=== PATIENT | male | born 1995 | race Hispanic/Latino ===

== ENCOUNTER 2018-05-19 13:42 | Emergency (ER) | payer BC, OTHER ==
--- NOTE | 2018-05-19 15:35 | RAD REPORT ---
EXAM DESCRIPTION: CT - CTHCSPWOC - 05/19/2018 3:21 pm CLINICAL HISTORY: Blunt force trauma to the head and, headache and neck pain COMPARISON: None. TECHNIQUE: Axial 5 mm thick images of the head were obtained. Axial 2 mm thick images of the cervic al spine were obtained with sagittal and coronal reconstruction images generated and reviewed. All CT scans are performed using dose optimization technique as appropriate and may include automated exposure control or mA/KV adjustment according to patient size. FINDINGS: No intracranial hemorrhage, mass, edema or acute intracranial finding. No suspicion for acute infarct ion. No extra-axial fluid collections. Mastoid air cells and paranasal sinuses are clear. No globe or orbit abnormality seen. Cervical body height and alignment are normal. No disk space narrowing. No fracture or acute bony abn ormality. No paraspinal mass or hematoma. IMPRESSION: Negative CT head examination for acute or significant finding. Negative CT cervical spine examination for acute or significant finding.
--- NOTE | 2018-05-19 15:39 | EDPHYS ---
Physician Documentation [facility] Name: Oscar Velasco Age: 23 yrs Sex: Male : 1995 Arrival Date: 05/19/2018 Time: 13:45 Bed 12 Private MD: Edvin Martinez S ED Physician Naveen Do HPI: 05/19 15:10 This 23 yrs old Male presents to ER via Ambulatory with complaints of Head rn Injury Without LOC-Adult, Dizziness. 15:10 The patient or guardian reports injury. The complaints affect the right side of the rn back of head. Onset: The symptoms/episode began/occurred just prior to arrival. Severity of symptoms: At their worst the symptoms were mild, in the emergency department the symptoms have improved. The patient has not experienced similar symptoms in the past. Reports at work, no head protection, someone cut the straps of cargo, hit in back of head with several pieces of lumbar, no LOC, felt dazed and dizzy, now improved, reports mild headache and neck pain, no focal neurological complaints. . Historical: - Home Meds: 13:57 pro graft [Active]; hj - PMHx: 13:57 liver failure; hj - PSHx: 13:57 liver transplant; hj - Immunization history:: Adult Immunizations up to date. - Social history:: Smoking status: Patient/guardian denies using tobacco, Patient/guardian denies using alcohol. - Immunization history: Last tetanus immunization: unknown. - Ebola Screening: : Patient negative for fever greater than or equal to 101.5 degrees Fahrenheit, and additional compatible Ebola Virus Disease symptoms Patient denies exposure to infectious person Patient denies travel to an Ebola-affected area in the 21 days before illness onset. - Family history:: not pertinent. - Hospitalizations: : No recent hospitalization is reported. ROS: 15:10 Constitutional: Negative for fever, chills, and weight loss, Eyes: Negative for injury, rn pain, redness, and discharge, Neck: + neck pain Cardiovascular: Negative for chest pain, palpitations, and edema, Respiratory: Negative for shortness of breath, cough, wheezing, and pleuritic chest pain, Abdomen/GI: Negative for abdominal pain, nausea, vomiting, diarrhea, and constipation, Back: Negative for injury and pain, MS/Extremity: Negative for injury and deformity, Skin: Negative for injury, rash, and discoloration, Neuro: + headache and head injury Exam: 15:10 Constitutional: This is a well developed, well nourished patient who is awake, alert, rn and in no acute distress. Head/Face: Normocephalic, atraumatic. Eyes: Pupils equal round and reactive to light, extra-ocular motions intact. Lids and lashes normal. Conjunctiva and sclera are non-icteric and not injected. Cornea within normal limits. Periorbital areas with no swelling, redness, or edema. Neck: No midline cervical tenderness, in ccollar Back: No spinal tenderness. Skin: Warm, dry with normal turgor. Normal color with no rashes, no lesions, and no evidence of cellulitis. MS/ Extremity: Pulses equal, no cyanosis. Neurovascular intact. Full, normal range of motion. Equal circumference. Neuro: Awake and alert, GCS 15, oriented to person, place, time, and situation. Cranial nerves II-XII grossly intact. Motor strength 5/5 in all extremities. Sensory grossly intact. Cerebellar exam normal. Normal gait. Vital Signs: 13:59 BP 120 / 80; Pulse 60; Resp 18; Temp 97.7(TE); Pulse Ox 97% on R/A; Weight 95.25 kg; hj Height 5 ft. 7 in. (170.18 cm); Pain 3/10; 15:50 BP 125 / 78; Pulse 78; Resp 18; Pulse Ox 98% on R/A; Pain 1/10; mg2 13:59 Body Mass Index 32.89 (95.25 kg, 170.18 cm) [place] Coma Score: 15:10 Eye Response: spontaneous(4). Verbal Response: oriented(5). Motor Response: obeys rn commands(6). Total: 15. 15:30 Eye Response: spontaneous(4). Verbal Response: oriented(5). Motor Response: obeys mg2 commands(6). Total: 15. 15:38 Eye Response: spontaneous(4). Verbal Response: oriented(5). Motor Response: obeys rn commands(6). Total: 15. Trauma Score (Adult): 15:30 Eye Response: spontaneous(1); Verbal Response: oriented(1); Motor Response: obeys mg2 commands(2); Systolic BP: > 89 mm Hg(4); Respiratory Rate: 10 to 29 per min(4); [place] Score: 15; Trauma Score: 12 15:50 Eye Response: spontaneous(1); Verbal Response: oriented(1); Motor Response: obeys mg2 commands(2); Systolic BP: > 89 mm Hg(4); Respiratory Rate: 10 to 29 per min(4); [place] Score: 15; Trauma Score: 12 MDM: 14:55 Patient medically screened. rn 15:38 Differential diagnosis: Contusion of Concussion. Data reviewed: vital signs, nurses rn notes, radiologic studies, CT scan, and as a result, I will discharge patient. Counseling: I had a detailed discussion with the patient and/or guardian regarding: the historical points, exam findings, and any diagnostic results supporting the discharge/admit diagnosis, radiology results, the need for outpatient follow up, to return to the emergency department if symptoms worsen or persist or if there are any questions or concerns that arise at home. Special discussion: Based on the patient's history, exam and DX evaluation, there is no indication for emergent intervention or inpatient [place]. It is understood by the patient/guardian that if the SXs persist or worsen they need to return immediately for re-evaluation. I discussed with the patient/guardian in detail that at this point there is no indication for admission to the hospital. It is understood, however, that if the symptoms persist or worsen the patient needs to return immediately for re-evaluation. 05/19 15:07 Order name: CT Head C Spine; Complete Time: 15:38 rn Administered Medications: No medications were administered Disposition: 05/19/18 15:39 Discharged to Home. Impression: Superficial injury of head. - Condition is Stable. - Discharge Instructions: Head Injury, Adult. - Medication Reconciliation Form, Thank You Letter, Antibiotic Education, Prescription Opioid Use, Work release form form. - Follow up: Private Physician; When: As needed; Reason: Recheck today's complaints, Re-evaluation by your physician. - Problem is new. - Symptoms have improved. Signatures: Dispatcher [employer] EDMS Naveen Do MD MD rn Joaquin, Henry, RN RN hj Gardose, Michele, RN RN mg2 Corrections: (The following items were deleted from the chart) 15:53 15:39 05/19/2018 15:39 Discharged to Home. Impression: Superficial injury of head. mg2 Condition is Stable. Forms are Medication Reconciliation Form, Thank You Letter, Antibiotic Education, Prescription Opioid Use. Follow up: Private Physician; When: As needed; Reason: Recheck today's complaints, Re-evaluation by your physician. Problem is new. Symptoms have improved. rn
--- NOTE | 2018-05-19 15:39 | ER ---
Nurse's Notes [facility] Name: Oscar Velasco Age: 23 yrs Sex: Male : 1995 Arrival Date: 05/19/2018 Time: 13:45 Bed 12 Private MD: Edvin Martinez S Diagnosis: Superficial injury of head Presentation: 05/19 13:54 Presenting complaint: Mother states: i was reaching something on a lumbar yard when 5 hj pieces of lumbar hit the back of my head; denies LOC; reports dizziness; denies N/V; denies laceration, reports headache and neck pain; on triage applied C collar;. Transition of care: patient was not received from another setting of care. Onset of symptoms was May 19, 2018. Risk Assessment: Do you want to hurt yourself or someone else? Patient reports no desire to harm self or others. Initial Sepsis Screen: Does the patient meet any 2 criteria? No. Patient's initial sepsis screen is negative. Does the patient have a suspected source of infection? No. Patient's initial sepsis screen is negative. Care prior to arrival: None. 13:54 Method Of Arrival: Ambulatory 13:54 Acuity: GAURAV 4 13:58 Mechanism of Injury: hit by a foreign obeject on the head. Trauma event details: Injury hj occurred in the [facility], Injury occurred: in a public building. Injury occurred: May 19, 2018 Injury occurred at: 11:30. Triage Assessment: 13:58 General: Appears in no apparent distress. uncomfortable, Behavior is calm, cooperative, hj appropriate for age. Pain: Complains of pain in head Pain currently is 3 out of 10 on a pain scale. Trauma Activation: Not Applicable Physician: ED Physician; Name: ; Notified At: ; Arrived At: Physician: General Surgeon; Name: ; Notified At: ; Arrived At: Physician: Radiology; Name: ; Notified At: ; Arrived At: Physician: Respiratory; Name: ; Notified At: ; Arrived At: Physician: Lab; Name: ; Notified At: ; Arrived At: Historical: - Home Meds: 13:57 pro graft [Active]; hj - PMHx: 13:57 liver failure; hj - PSHx: 13:57 liver transplant; hj - Immunization history:: Adult Immunizations up to date. - Social history:: Smoking status: Patient/guardian denies using tobacco, Patient/guardian denies using alcohol. - Immunization history: Last tetanus immunization: unknown. - Ebola Screening: : Patient negative for fever greater than or equal to 101.5 degrees Fahrenheit, and additional compatible Ebola Virus Disease symptoms Patient denies exposure to infectious person Patient denies travel to an Ebola-affected area in the 21 days before illness onset. - Family history:: not pertinent. - Hospitalizations: : No recent hospitalization is reported. Screenin:58 Abuse screen: Denies threats or abuse. Denies injuries from another. Nutritional hj screening: No deficits noted. Tuberculosis screening: No symptoms or risk factors identified. Fall Risk None identified. Primary Survey: 15:15 NO uncontrolled hemorrhage observed. A: The patient is alert. Airway: patent. mg2 Breathing/Chest: Respiratory pattern: regular, Respiratory effort: spontaneous, unlabored, Breath sounds: clear. Circulation: Skin color: pink, Skin temperature: warm, dry. Disability Alert. 15:15 Exposure/Environment: There is no evidence of uncontrolled external bleeding. No mg2 obvious injuries are noted at this time. 15:50 Reassessment Airway Airway Patent Breathing/Chest Respiratory pattern Regular mg2 Respiratory effort Spontaneous Unlabored Circulation Color [place] Disability Alert. Assessment: 15:30 Musculoskeletal: Circulation, motion, and sensation intact. Capillary refill < 3 mg2 seconds, Reports pain in right side of the back of head. 15:32 General: Appears in no apparent distress. comfortable, Behavior is calm, cooperative. mg2 Pain: Complains of pain in right side of the back of head Pain does not radiate. Pain currently is 2 out of 10 on a pain scale. Quality of pain is described as aching, Pain began suddenly, 4 hours ago. Is intermittent. Neuro: Level of Consciousness is awake, alert, obeys commands, Oriented to person, place, time, situation. Cardiovascular: Capillary refill < 3 seconds Patient's skin is warm and dry. Respiratory: Airway is patent Respiratory effort is even, unlabored, Respiratory pattern is regular, symmetrical. GI: No signs and/or symptoms were reported involving the gastrointestinal system. : No signs and/or symptoms were reported regarding the genitourinary system. EENT: No signs and/or symptoms were reported regarding the EENT system. Derm: Skin is intact, is healthy with good turgor, Skin is pink, warm \T\ dry. normal. Vital Signs: 13:59 BP 120 / 80; Pulse 60; Resp 18; Temp 97.7(TE); Pulse Ox 97% on R/A; Weight 95.25 kg; hj Height 5 ft. 7 in. (170.18 cm); Pain 3/10; 15:50 BP 125 / 78; Pulse 78; Resp 18; Pulse Ox 98% on R/A; Pain 1/10; mg2 13:59 Body Mass Index 32.89 (95.25 kg, 170.18 cm) hj Mis Coma Score: 15:10 Eye Response: spontaneous(4). Verbal Response: oriented(5). Motor Response: obeys rn commands(6). Total: 15. 15:30 Eye Response: spontaneous(4). Verbal Response: oriented(5). Motor Response: obeys mg2 commands(6). Total: 15. 15:38 Eye Response: spontaneous(4). Verbal Response: oriented(5). Motor Response: obeys rn commands(6). Total: 15. Trauma Score (Adult): 15:30 Eye Response: spontaneous(1); Verbal Response: oriented(1); Motor Response: obeys mg2 commands(2); Systolic BP: > 89 mm Hg(4); Respiratory Rate: 10 to 29 per min(4); Mis Score: 15; Trauma Score: 12 15:50 Eye Response: spontaneous(1); Verbal Response: oriented(1); Motor Response: obeys mg2 commands(2); Systolic BP: > 89 mm Hg(4); Respiratory Rate: 10 to 29 per min(4); Mis Score: 15; Trauma Score: 12 ED Course: 13:45 Patient arrived in ED. mr 13:45 Edvin Martinez MD is Private Physician. mr 13:57 Triage completed. hj 13:58 Arm band placed on left wrist. hj 14:00 Patient has correct armband on for positive identification. Bed in low position. Call light in reach. Side rails up X 1. Adult w/ patient. 14:55 Naveen Do MD is Attending Physician. rn 15:03 Pollo Cartwright, STACIA is Primary Nurse. mg2 15:[address] via wheelchair. nj 15:19 CT completed. Patient tolerated procedure well. Patient moved back from CT. nj 15:21 CT Head C Spine In Process Unspecified. EDMS 15:30 Patient maintains SpO2 saturation greater than 95% on room air. mg2 15:30 Thermoregulation: warm blanket given to patient. mg2 15:50 No provider procedures requiring assistance completed. mg2 15:50 Patient did not have IV access during this emergency room visit. mg2 Administered Medications: No medications were administered Intake: 15:30 PO: 0ml; Total: 0ml. mg2 Outcome: 15:39 Discharge ordered by . rn 15:50 Discharge instructions given to patient, family, Instructed on discharge instructions, mg2 follow up and referral plans. Demonstrated understanding of instructions, follow-up care. 15:53 Discharged to home ambulatory, with family. mg2 15:53 Condition: stable 15:53 Patient's length of stay was not longer than 2 hours. 15:53 Patient left the ED. mg2 Signatures: Dispatcher [employer] EDNY WesleyKira Roman, MD MD rn Joaquin, Henry, RN RN hj Jordan, Nathan nj Gardose, Michele, RN RN mg2 Corrections: (The following items were deleted from the chart) 14:00 13:54 Presenting complaint: Mother states: i was reaching something on a lumbar yard hj when 5 pieces of lumbar hit the back of my head; denies LOC; reports dizziness; denies N/V; reports headache and neck pain; on triage applied C collar; hj 14:00 13:59 95.25 kg; Height 5 ft. 7 in.; BMI: 32.8; Pain 3/10; hj hj
== END 2018-05-19 15:53 | disposition home or self-care (01) ==
LOC: ER 13:42
DX: S00.90XA Unspecified superficial injury of unspecified part of head, initial encounter (principal); W22.8XXA Striking against or struck by other objects, initial encounter; Y93.89 Activity, other specified; Y92.89 Other specified places as the place of occurrence of the external cause; Y99.8 Other external cause status; Z94.4 Liver transplant status
CPT/HCPCS: 70450; 72125; 99284

== ENCOUNTER 2019-08-05 18:34 | Emergency (ER) | payer BC, OTHER ==
--- OUTSIDE RECORDS SUMMARY | 2019-08-05 18:35 | XMS REPORT | Summary of Care ---
:1995 Author Organization [facility] Address [address] [place] [id number] Care Team Providers Name Role Phone Unavailable Primary Care Provider Unavailable Reason for Visit Reason Comments Refill Request Encounter Details Date Type Department Care Team Description 06/30/2019 Refill [facility] Edvin Martinez MD Refill Request - [address] [place] [address] [place] [address] Allergies No Known Allergiesdocumented as of this encounter (statuses as of 07/01/2019) Medications Medication Sig Dispensed Refills Start Date End Date Status tacrolimus 1 mg capsule Take 1 mg by 0 10/06/2017 Active mouth 2 (two) times daily. documented as of this encounter (statuses as of 07/01/2019) Active Problems Problem Noted Date Needs flu shot 05/04/2016 Encounter for antibody response examination 05/04/2016 Encounter for PPD test 05/04/2016 Feeling anxious 05/04/2016 documented as of this encounter (statuses as of 07/01/2019) Immunizations Name Administration Dates Next Due HEP B, Adult Dosage 11/09/2016, 07/27/2016, 06/19/2016 Influenza Virus Vaccine Quad IM 3+ YRS 05/04/2016 documented as of this encounter Social History Tobacco Use Types Packs/Day Years Used Date Never Smoker Smokeless Tobacco: Never Used Alcohol Use Drinks/Week oz/Week Comments No Sex Assigned at Date Recorded Not on file Job Start Date Occupation Industry Not on file Not on file Not on file Travel History Travel Start Travel End No recent travel history available. documented as of this encounter Last Filed Vital Signs Not on filedocumented in this encounter Plan of Treatment Health Maintenance Due Date Last Done Comments PNEUMOCOCCAL 0-64 YEARS COMBINED SERIES (1 of 3 - 1999 PCV13) DTaP,Tdap,and Td Vaccines (1 - Tdap) 2004 HPV VACCINES (1 - Risk male 3-dose series) 2004 INFLUENZA VACCINE (#1) 2019 05/04/2016 documented as of this encounter Results Not on filedocumented in this encounter Insurance Payer Benefit Plan Subscriber ID Effective Dates Phone Address Type / Group BCBS OF [facility] [id number] 2019-Lucy [phone] [address] PPO/POS [place] - OUT OF t [id number] [place] [address] documented as of this encounter
--- OUTSIDE RECORDS SUMMARY | 2019-08-05 18:36 | XMS REPORT | Summary of Care ---
:1995 Author Organization [facility] Address [address] [place] [address] Care Team Providers Name Role Phone Edvin Martinez MD Primary Care Provider Encounter Details Date Type Department Care Team Description 07/09/2019 Orders Only [facility] Doctor Unassigned, No [address] [facility] [place] [address] [address] [place] [address] Allergies No Known Allergiesdocumented as of this encounter (statuses as of 07/09/2019) Medications Medication Sig Dispensed Refills Start Date End Date Status tacrolimus 1 mg capsule Take 1 mg by 0 10/06/2017 Active mouth 2 (two) times daily. documented as of this encounter (statuses as of 07/09/2019) Active Problems Problem Noted Date Needs flu shot 05/04/2016 Encounter for antibody response examination 05/04/2016 Encounter for PPD test 05/04/2016 Feeling anxious 05/04/2016 documented as of this encounter (statuses as of 07/09/2019) Immunizations Name Administration Dates Next Due HEP [...] filedocumented in this encounter Plan of Treatment Date Type Specialty Care Team Description 07/09/2019 Office Visit Family Medicine Edvin Martinez MD [address] [place] [id number] Health Maintenance Due Date Last Done Comments PNEUMOCOCCAL 0-64 YEARS COMBINED SERIES (1 of 3 - 1999 PCV13) DTaP,Tdap,and Td Vaccines (1 - Tdap) 2004 HPV VACCINES (1 - Risk male 3-dose series) 2004 INFLUENZA VACCINE (#1) 2019 05/04/2016 documented as of this encounter Procedures Procedure Name Priority Date/Time Associated Diagnosis Comments ASSIGNMENT OF BENEFITS Routine 07/09/2019 1:25 PM [employer] documented in this encounter Results Not on filedocumented in this encounter Insurance Payer Benefit Plan Subscriber ID Effective Dates Phone Address Type / Group BCBS OF [facility] [id number] 2019-Lu[place] [phone] [address] PPO/POS [place] - OUT OF t 87 [id number] [place] [address] documented as of this encounter
--- OUTSIDE RECORDS SUMMARY | 2019-08-05 18:36 | XMS REPORT | Summary of Care ---
:1995 Author Organization [facility] Address [address] [place] [address] Care Team Providers Name Role Phone Edvin Martinez MD Primary Care Provider Reason for Referral (Routine) Status Reason Specialty Diagnoses / Referred By Referred To Procedures Contact Contact New Request Location Gastroenterology Diagnoses Liver transplant recipient Tahira Martinez Procedures CONSULT/REFERRAL GASTROENTEROLOGY MD Edvin [address] [place] [address] Reason for Visit Reason Comments WARTS REFERRAL Encounter Details Date Type Department Care Team Description 07/09/2019 Office Visit [facility] Family Edvin Martinez MD Upper respiratory tract infection, unspecified type (Primary Dx); [facility] [place] [address] [address] [facility] Liver transplant recipient; [facility] [address] [facility] [place] [address] Allergies No Known Allergiesdocumented as of this [...] of this encounter Last Filed Vital Signs Vital Sign Reading Time Taken Comments Blood Pressure 130/80 07/09/2019 1:29 PM TMD TEACHER ASSISTANT Pulse - - Temperature - - Respiratory Rate - - Oxygen Saturation - - Inhaled Oxygen Concentration - - Weight 101.6 kg (224 lb) 07/09/2019 1:29 PM TMD TEACHER ASSISTANT Height - - Body Mass Index 37.28 07/27/2016 8:39 AM TMD TEACHER ASSISTANT documented in this encounter Progress Notes Edvin Martinez MD - 07/09/2019 1:30 PM CST Cc: hx uri, liver disease Chief Complaint Patient presents with WARTS REFERRAL Oscar Velasco is a 24 year old male. Hx liver transplant, needs specialist Allergies Oscar has No Known Allergies. Medications Outpatient Medications Prior to Visit Medication Sig Dispense Refill tacrolimus 1 mg capsule Take 1 mg by mouth 2 (two) times daily. 0 No facility-administered medications prior to visit. Histories Past Medical History: Diagnosis Date Biliary atresia Past Surgical History: Procedure Laterality Date LIVER TRANSPLANT Social History Socioeconomic History Marital status: Single Spouse name: Not on file Number of children: Not on file Years of education: Not on file Highest education level: Not on file Occupational History Not on file Social Needs Financial resource strain: Not on file Food insecurity: Worry: Not on file Inability: Not on file Transportation needs: Medical: Not on file Non-medical: Not on file Tobacco Use Smoking status: Never Smoker Smokeless tobacco: Never Used Substance and Sexual Activity Alcohol use: No Drug use: No Sexual activity: Not on file Lifestyle Physical activity: Days per week: Not on file Minutes per session: Not on file Stress: Not on file Relationships Social connections: Talks on phone: Not on file Gets together: Not on file Attends holiness service: Not on file Active member of club or organization: Not on file Attends meetings of clubs or organizations: Not on file Relationship status: Not on file Intimate partner violence: Fear of current or ex partner: Not on file Emotionally abused: Not on file Physically abused: Not on file Forced sexual activity: Not on file Other Topics Concern Not on file Social History Narrative Applying for [place] [facility] Family History Problem Relation Age of Onset Heart Mother Hypertension Mother Diabetes Father Hypertension Father Review of Systems Vital Signs BP 130/80 | Wt 224 lb (101.6 kg) | BMI 37.28 kg/m Physical Exam Constitutional: He appears well-developed and well-nourished. HENT: Head: Normocephalic and atraumatic. Right Ear: External ear normal. Left Ear: External ear normal. Eyes: Pupils are equal, round, and reactive to light. EOM are normal. Cardiovascular: Normal rate, regular rhythm and normal heart sounds. Pulmonary/Chest: Effort normal and breath sounds normal. Abdominal: Soft. Musculoskeletal: Normal range of motion. Neurological: He is alert. Skin: Few small warts Vitals reviewed. Assessment/Plan Hx liver transplant, GI consult Warts, trial topical This visit did not involve counseling and coordination that comprised more than 50% of the visit time.Electronically signed by Edvin Martinez MD at 2019 1:40 PM CSTdocumented in this encounter Plan of Treatment Health Maintenance Due Date Last Done Comments PNEUMOCOCCAL 0-64 YEARS COMBINED SERIES (1 of 3 - 1999 PCV13) DTaP,Tdap,and Td Vaccines (1 - Tdap) 2004 HPV VACCINES (1 - Risk male 3-dose series) 2004 INFLUENZA VACCINE (#1) 2019 05/04/2016 documented as of this encounter Results Not on filedocumented in this encounter Visit Diagnoses Diagnosis Upper respiratory tract infection, unspecified type - Primary Liver transplant recipient Viral warts, unspecified type documented in this encounter Insurance Payer Benefit Plan Subscriber ID Effective Dates Phone Address Type / Group [facility] [id number] 2019-Lucy [phone] [address] PPO/POS [place] - OUT OF t 87 [id number] [place] [address] documented as of this encounter"
--- OUTSIDE RECORDS SUMMARY | 2019-08-05 18:36 | XMS REPORT | Summary of Care ---
:1995 Author Organization [facility] Address [address] [place] [address] Care Team Providers Name Role Phone Edvin Martinez MD Primary Care Provider Reason for Visit Reason Comments Notification Encounter Details Date Type Department Care Team Description 08/03/2019 Telephone [facility] Family Medicine Edvin Martinez MD Notification - [place] [address] [facility] [address] [place] [address] [place] [address] Allergies No Known Allergiesdocumented as of this encounter (statuses as of 08/05/2019) Medications Medication Sig Dispensed Refills Start Date End Date Status tacrolimus 1 mg capsule Take 1 mg by 0 10/06/2017 Active mouth 2 (two) times daily. documented as of this encounter (statuses as of 08/05/2019) Active Problems Problem Noted Date Needs flu shot 05/04/2016 Encounter for antibody response examination 05/04/2016 Encounter for PPD test 05/04/2016 Feeling anxious 05/04/2016 documented as of this encounter (statuses as of 08/05/2019) Immunizations Name Administration Dates Next Due HEP [...] Phone Address Type / Group BCBS OF [facility] [id number] 2019-Lucy [phone] [address] PPO/POS [place] - OUT OF t 87 [id number] [place] [address] documented as of this encounter
--- OUTSIDE RECORDS SUMMARY | 2019-08-05 18:36 | XMS REPORT | Summary of Care ---
:1995 Author Organization [facility] Address [address] [place] [address] Care Team Providers Name Role Phone Edvin Martinez MD Primary Care Provider Reason for Referral (Routine) Status Reason Specialty Diagnoses / Referred By Referred To Procedures Contact Contact New Request Location Gastroenterology Diagnoses Liver transplant recipient Tahira Martinez Procedures CONSULT/REFERRAL GASTROENTEROLOGY MD Edvin [address] [place] [address] Reason for Visit Reason Comments WARTS REFERRAL Encounter Details Date Type Department Care Team Description 07/09/[address] [facility] Family Edvin Martinez MD Upper respiratory tract infection, unspecified type (Primary Dx); [facility] [place] [address] [address] [facility] Liver transplant recipient; [facility] 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
--- OUTSIDE RECORDS SUMMARY | 2019-08-05 18:36 | XMS REPORT ---
:1995 Author Organization [facility] Address [address] [place] [address] Care Team Providers Name Role Phone DRAKE TRINH Unavailable Unavailable Problems This patient has no known problems. Allergies, Adverse Reactions, Alerts This patient has no known allergies or adverse reactions. Medications This patient has no known medications. Results Test Description Test Time Test Comments Text Results Atomic Results Result Comments TACROLIMUS LEVEL 2017-11-25 11:16:00 Test Item Value Reference Range Comments TACROLIMUS BLOOD (BEAKER) (test wyom=595) < ng/mL 10.0-20.0 U/S, ABDOMINAL, WITH [id number] 09:02:00Reason for Exam:->evaluate after transplantFINAL REPORT HISTORY : History of liver transplant COMPARISON : 12/24/2013 COMMENT : Complete ultrasound examination of the abdomen with color Doppler and spectral evaluation of the abdominal vasculature was performed. The visualized pancreas is unremarkable. The transplant liver is stable in size measuring 14.6 cm in length. The hepatic parenchyma appears heterogeneous withoutevidence for focal abnormality. The gallbladder is surgically absent. There is no intra or extrahepatic biliary ductal dilatation. The common bile duct measures 3 mm. The spleen is mildly prominent measuring 12.6 cm in length but otherwise demonstrates an unremarkable sonographic appearance. The kidneys are normal in size measuring 10.2 cm in length on the right and 11.5 cm in length on the left withnormal cortical thickness/echogenicity. There is no evidence for solid renal mass, hydronephrosis, or shadowing calculi. There is no ascites or pleural fluid present. Vascular:The main portal vein is patent with antegrade flow and a diameter of 1.6 cm. Peak systolic velocity is 16.8 cm/s. The right and left portal veins are patent with antegrade flow. The proper hepatic artery is patent with resistive index of 0.7. The right and left hepatic arteries are patent with resistive indices of 0.6 and 0.5 respectively. Arterial waveforms are within normal limits. The middle, right, and left hepatic veins are patent with antegrade flow. The IVC is patent and unremarkable. The SMV is patent with antegrade flow. The splenic artery and vein are patent and unremarkable. The aorta tapers normally. IMPRESSION: 1. Stable sonographic appearance of the transplant liver without evidence for focal abnormality.2. Stable mild splenomegaly.3. Unremarkable abdominal Doppler evaluation. Signed: Jose Juan Cummings MDReport Verified Date/Time: 11/25/2017 09:02:08 Reading Location: [address] Radiology Reading Room RAD, CHEST, 2 [id number] 08:18:00Reason for Exam:-&gt ;evaluate after transplantFINAL REPORT CHEST, AP AND LATERAL. COMPARISON: None available. DISCUSSION: The trachea is midline. There is slight elevation of the right hemidiaphragm. There is no evidence for focal consolidation, pneumothorax, or significant pleural effusion. The cardiomediastinal silhouette and pulmonary vasculature are within normal limits. No acute osseous abnormalities are identified.The surrounding soft tissues are unremarkable. IMPRESSION: No acute cardiopulmonary process identified. Signed: Jose Juan Cummings MDReport Verified Date/Time: 11/25/2017 08:18 :42 Reading Location: [address] Radiology Reading Room ALPHA FETOPROTEIN (AFP), TUMOR [id number] 08:02:00 Test Item Value Reference Range Comments ALPHA-FETOPROTEIN (BEAKER) (test vrjz=1114) 4.6 ng/mL <10.0 BASIC METABOLIC [id number] 07:56:00 Test Item Value Reference Range Comments SODIUM (BEAKER) (test 138 meq/L 136-145 mgwm=951) POTASSIUM (BEAKER) (test 3.8 meq/L 3.5-5.1 ogqn=552) CHLORIDE (BEAKER) (test 105 meq/L 98-107 zmfk=722) CO2 (BEAKER) (test 25 meq/L 22-29 fify=480) BLOOD UREA NITROGEN 14 mg/dL 7-21 (BEAKER) (test fqxo=574) CREATININE (BEAKER) (test 0.94 mg/dL 0.57-1.25 jnqk=066) GLUCOSE RANDOM (BEAKER) 94 mg/dL 70-105 (test zomz=232) CALCIUM (BEAKER) (test 9.4 mg/dL 8.4-10.2 npoj=940) EGFR (BEAKER) (test mL/min/1.73 sq m INSUFFICIENT CLINICAL DATA pbpb=2853) TO CALCULATE ESTIMATED GFR. HEPATIC FUNCTION [id number] 07:42:00 Test Item Value Reference Range Comments TOTAL PROTEIN (BEAKER) (test thty=145) 8.0 gm/dL 6.0-8.3 ALBUMIN (BEAKER) (test moxd=1954) 4.3 g/dL 3.5-5.0 BILIRUBIN TOTAL (BEAKER) (test gviy=770) 1.3 mg/dL 0.2-1.2 BILIRUBIN DIRECT (BEAKER) (test libu=106) 0.4 mg/dL 0.1-0.5 ALKALINE PHOSPHATASE (BEAKER) (test wzvn=286) 158 U/L 40-150 AST (SGOT) (BEAKER) (test sclx=784) 27 U/L 5-34 ALT (SGPT) (BEAKER) (test fwgl=103) 27 U/L 6-55 PROTHROMBIN [id number] 07:25:00 Test Item Value Reference Range Comments PROTIME (BEAKER) (test gfib=026) 14.0 seconds 11.7-14.7 INR (BEAKER) (test dync=066) 1.1 <=5.9 RECOMMENDED COUMADIN/WARFARIN INR THERAPY RANGESSTANDARD DOSE: 2.0 - 3.0 Includes: PROPHYLAXIS forvenous thrombosis, systemic embolization; TREATMENT for venous thrombosis and/or pulmonary embolus.HIGH RISK: Target INR is 2.5-3.5 for patients with mechanical heart valves.CBC W/PLT COUNT & AUTO [id number] 07:14:00 Test Item Value Reference Range Comments WHITE BLOOD CELL COUNT (BEAKER) (test rarq=952) 7.1 K/ L 3.5-10.5 RED BLOOD CELL COUNT (BEAKER) (test kroa=992) 5.65 M/ L 4.63-6.08 HEMOGLOBIN (BEAKER) (test jgpf=734) 16.7 GM/DL 13.7-17.5 HEMATOCRIT (BEAKER) (test ogts=249) 47.4 % 40.1-51.0 MEAN CORPUSCULAR VOLUME (BEAKER) (test sszn=829) 83.9 fL 79.0-92.2 MEAN CORPUSCULAR HEMOGLOBIN (BEAKER) (test 29.6 pg 25.7-32.2 dbcs=901) MEAN CORPUSCULAR HEMOGLOBIN CONC (BEAKER) (test 35.2 GM/DL 32.3-36.5 tuvx=789) RED CELL DISTRIBUTION WIDTH (BEAKER) (test 13.6 % 11.6-14.4 gzhv=460) PLATELET COUNT (BEAKER) (test crqj=875) 172 K/CU MM 150-450 MEAN PLATELET VOLUME (BEAKER) (test jfbw=779) 11.5 fL 9.4-12.4 NUCLEATED RED BLOOD CELLS (BEAKER) (test 0 /100 WBC 0-0 yhcu=266) NEUTROPHILS RELATIVE PERCENT (BEAKER) (test 59 % hoxd=612) LYMPHOCYTES RELATIVE PERCENT (BEAKER) (test 29 % klua=463) MONOCYTES RELATIVE PERCENT (BEAKER) (test 9 % egbu=984) EOSINOPHILS RELATIVE PERCENT (BEAKER) (test 4 % fvlg=330) BASOPHILS RELATIVE PERCENT (BEAKER) (test 0 % fqmy=459) NEUTROPHILS ABSOLUTE COUNT (BEAKER) (test 4.17 K/ L 1.78-5.38 hosx=461) LYMPHOCYTES ABSOLUTE COUNT (BEAKER) (test 2.03 K/ L 1.32-3.57 tyci=871) MONOCYTES ABSOLUTE COUNT (BEAKER) (test 0.60 K/ L 0.30-0.82 gmvq=006) EOSINOPHILS ABSOLUTE COUNT (BEAKER) (test 0.26 K/ L 0.04-0.54 mfoy=796) BASOPHILS ABSOLUTE COUNT (BEAKER) (test 0.02 K/ L 0.01-0.08 sueh=263) IMMATURE GRANULOCYTES-RELATIVE PERCENT (BEAKER) 0 % 0-1 (test edlj=4842)
--- OUTSIDE RECORDS SUMMARY | 2019-08-05 18:36 | XMS REPORT | Summary of Care ---
:1995 Author Organization [facility] Address [address] [place] [address] Care Team Providers Name Role Phone Edvin Martinez MD Primary Care Provider Encounter Details Date Type Department Care Team Description 07/09/2019 Letter (Out) [facility] Family Edvin Martinez MD [facility] [address] [place] [address] [place] [address] Allergies No Known Allergiesdocumented as [...] Effective Dates Phone Address Type / Group BC OF [facility] [id number] 2019-Lucy [phone] [address] PPO/POS [place] - OUT OF t 87 [id number] [place] [address] documented as of this encounter
[2019-08-05] MEDS ORDERED: NA CHLORIDE 0.9% 3,000 ML ONE (19:33)
[2019-08-05 19:34] LABS: Protime INR 1.08
[2019-08-05] MEDS ORDERED: IBUPROFEN 200 MG TAB PO ONE (19:41)
[2019-08-05] MEDS ORDERED: IBUPROFEN 400 MG TAB ONE (19:42)
[2019-08-05] MEDS ORDERED: ONDANSETRON 4 MG/2 ML VIAL ONE (19:42)
[2019-08-05 19:51] LABS: ALT/SGPT 58 U/L (12-78); AST/SGOT 64 U/L (15-37); Absolute Lymphocytes (CBC) 0.8 K/uL (0.7-4.9); Albumin 3.8 g/dL (3.4-5.0); Alkaline Phosphatase 200 U/L (45-117); Amylase 58 U/L (25-115); BUN Blood Urea Nitrogen 13 mg/dL (7-18); Basophils % 0.1 % (0-1.3); Bicarbonate 22 mmol/L (21-32); Bilirubin Direct 0.5 mg/dL (0-0.2); Bilirubin Total 2.1 mg/dL (0.2-1.0); CKMB Creatine Kinase MB < 1.0 ng/mL (0.3-3.6); Creatine Phosphokinase 102 U/L (39-308); Glucose Level 118 mg/dL (74-106); Hematocrit 49.8 % (39.6-49.0); Lipase 115 U/L (73-393); Lymphocytes % 4.9 % (15.3-44.8); MPV 10.1 fL (7.6-11.3); Potassium 3.4 mmol/L (3.5-5.1); Protein, Total 8.4 g/dL (6.4-8.2); RBC Red Blood Cell Count 5.93 M/uL (4.33-5.43); Sodium Level 139 mmol/L (136-145); Troponin (Emerg Dept Use Only) < 0.02 ng/mL (0.0-0.045)
[2019-08-05 19:55] LABS: Urine Blood NEGATIVE (NEG); Urine Glucose NEGATIVE (NEG); Urine Protein NEGATIVE (NEG); Urine Specific Gravity 1.025 (1.005-1.030); Urine pH 5.5 (5.0-7.0)
[2019-08-05 19:55] LABS: Urine Bacteria <20 /HPF (NONE SEEN); Urine Mucus 2+ /HPF (NONE SEEN); Urine RBC <5 /HPF (NONE SEEN)
[2019-08-05] MEDS ORDERED: AZITHROMYCIN 500 MG INJ IVPB ONE (20:54)
[2019-08-05] MEDS ORDERED: NA CHLORIDE 0.9% 0 ML ONE (20:54)
[2019-08-05] MEDS ORDERED: CEFTRIAXONE/SWI 1gm 1 GM/10 ML SYR ONE (20:54)
[2019-08-05] MEDS ORDERED: NA CHLORIDE 0.9% 50 ML IV ONE (20:55)
[2019-08-05 21:18] LABS: Blood Morphology Comment NOT SEEN (NOT SEEN); Platelet Estimate ADEQ
--- NOTE | 2019-08-05 21:37 | RAD REPORT ---
EXAM DESCRIPTION: RAD - Chest Single View - 08/05/2019 7:41 pm CLINICAL HISTORY: FEVER, cough, chills, body ache TECHNIQUE: AP portable chest image was obtained 08/05/2019 7:41 pm . FINDINGS: Lungs are clear. Heart and vasculature are normal. No measurable pleural effusion and no p neumothorax. No acute bony abnormality seen. No acute aortic finding. Bowel interposition between the liver and right hemidiaphragm noted as a normal variant. Free air in the peritoneal cavity is not bojorquez spected. IMPRESSION: No acute cardiopulmonary process.
[2019-08-05] MEDS ORDERED: Levofloxacin500mg IV 500 MG/100 ML BAG IV ONE (21:43)
--- NOTE | 2019-08-05 21:46 | RAD REPORT ---
EXAM DESCRIPTION: RAD - Chest Pa And Lat (2 Views) - 08/05/2019 8:58 pm CLINICAL HISTORY: Cough;Fever, chills, body aches COMPARISON: Portable August 04 TECHNIQUE: Frontal and lateral views of the chest were obtained. FINDINGS: The lungs are slightly underinflated. No focal mass or consolidation. Normal variant nichole l interposition between the liver and right hemidiaphragm. No free air under the hemidiaphragm. Pulmo nary arteries are within normal limits. Heart size is normal and central vasculature is within normal limits. No pleural effusion or pneumothorax seen. No acute bony finding noted. No aortic abnormal ity. IMPRESSION: No acute cardiopulmonary process.
--- NOTE | 2019-08-05 22:01 | EDPHYS ---
Physician Documentation [facility] Name: Oscar Velasco Age: 24 yrs Sex: Male : 1995 Arrival Date: 08/05/2019 Time: 18:39 Bed 30 Private MD: ED Physician Dillon Hargrove HPI: 08/04 19:26 This 24 yrs old Male presents to ER via Ambulatory with complaints of Fever, la1 Body aches. 19:26 The patient reports fever, that was measured at 102.3 degrees Fahrenheit. Onset: The la1 symptoms/episode began/occurred today. Modifying factors: there are no obvious modifying factors. Associated signs and symptoms: Pertinent positives: chills, cough, myalgias, nausea. Severity of symptoms: At their worst the symptoms were moderate. The patient has not experienced similar symptoms in the past. pt with hx of liver transplant, is on anti-rejection meds. Historical: - Allergies: 19:02 No Known Allergies; ca1 - Home Meds: 19:02 pro graft [Active]; ca1 - PMHx: 19:02 liver failure; ca1 - PSHx: 19:02 liver transplant; ca1 - Immunization history:: Adult Immunizations up to date, Flu vaccine is not up to date. - Social history:: Smoking status: Patient denies any tobacco usage or history of. ROS: 19:27 Eyes: Negative for injury, pain, redness, and discharge, ENT: Negative for injury, la1 pain, and discharge, Neck: Negative for injury, pain, and swelling, Cardiovascular: Negative for chest pain, palpitations, and edema. 19:27 Back: Negative for injury and pain, : Negative for injury, bleeding, discharge, and swelling, MS/Extremity: Negative for injury and deformity, Skin: Negative for injury, rash, and discoloration, Neuro: Negative for headache, weakness, numbness, tingling, and seizure. 19:27 Constitutional: Positive for body aches, chills, fever, malaise. 19:27 Respiratory: Positive for cough. 19:27 Abdomen/GI: Positive for nausea. Exam: 19:27 Constitutional: This is a well developed, well nourished patient who is awake, alert, la1 and in no acute distress. Head/Face: Normocephalic, atraumatic. Eyes: Pupils equal round and reactive to light, extra-ocular motions intact. ENT: Mucous membranes moist. Neck: Trachea midline, Supple, full range of motion without nuchal rigidity, or vertebral point tenderness. No Meningismus. Chest/axilla: Normal chest wall appearance and motion. Nontender with no deformity. No lesions are appreciated. Cardiovascular: Regular rate and rhythm with a normal S1 and S2. Respiratory: Lungs have equal breath sounds bilaterally, clear to auscultation Abdomen/GI: Soft, non-tender, with normal bowel sounds. No distension or tympany. No guarding or rebound. No evidence of tenderness throughout. Back: No spinal tenderness. No costovertebral tenderness. Full range of motion. Skin: Warm, dry with normal turgor. Normal color with no rashes, no lesions, and no evidence of cellulitis. Vital Signs: 18:57 BP 112 / 57; Pulse 135; Resp 19 S; Temp 102.3(O); Pulse Ox 96% on R/A; Weight 95.25 kg ca1 (R); Height 5 ft. 7 in. (170.18 cm) (R); Pain 6/10; 19:59 BP 108 / 67; Pulse 106; Resp 18; Temp 99.9; Pulse Ox 97% ; Pain 5/10; ll1 22:57 BP 105 / 67; Pulse 96; Resp 17; Temp 98.5; Pulse Ox 97% ; Pain 0/10; ll1 08/05 01:27 BP 110 / 71; Pulse 70; Resp 18; Temp 99.2; Pulse Ox 98% ; Pain 7/10; ll1 02:10 BP 108 / 71; Pulse 75; Resp 17; Pulse Ox 97% ; ll1 08/04 18:57 Body Mass Index 32.89 (95.25 kg, 170.18 cm) ca1 MDM: 08/04 19:06 Patient medically screened. la1 21:58 Data reviewed: vital signs, nurses notes, lab test result(s), EKG, radiologic studies, la1 I have discussed the patient's presentation/case with the attending Emergency Department Physician; and as a result, I will admit patient. Data interpreted: Pulse oximetry: on room air is 97 %. Interpretation: normal. Counseling: I had a detailed discussion with the patient and/or guardian regarding: the historical points, exam findings, and any diagnostic results supporting the discharge/admit diagnosis, lab results, the need for further work-up and treatment in the hospital. ED course: Discussed case with Dr. Skaggs and Dr. Kim at [facility]. They will accept for fever, immune suppressed pt.. 08/04 19:11 Order name: Amylase, Serum 08/04 19:11 Order name: Basic Metabolic Panel 08/04 19:11 Order name: Blood Culture Adult (2) 08/04 19:11 Order name: CBC with Diff 08/04 19:11 Order name: Ckmb 08/04 19:11 Order name: CPK 08/04 19:11 Order name: Lactate; Complete Time: 20:13 wi08/04 19:11 Order name: LFT's; Complete Time: 20:13 wi08/04 19:11 Order name: Lipase; Complete Time: 20:13 wi08/04 19:11 Order name: Procalcitonin; Complete Time: 20:13 wi08/04 19:11 Order name: Protime (+inr); Complete Time: 20:13 wi08/04 19:11 Order name: Ptt, Activated; Complete Time: 20:13 wi08/04 19:11 Order name: Troponin (emerg Dept Use Only); Complete Time: 20:13 08/04 19:11 Order name: Urine Microscopic Only; Complete Time: 20:13 08/04 19:11 Order name: Chest Single View XRAY; Complete Time: 21:52 08/04 19:11 Order name: Flu; Complete Time: 20:13 08/04 19:12 Order name: Amylase Level; Complete Time: 20:13 ED08/04 19:12 Order name: Basic Metabolic Panel; Complete Time: 20:13 ED08/04 19:12 Order name: Blood Culture 08/04 19:12 Order name: CBC with Automated Diff; Complete Time: 21:52 08/04 19:12 Order name: CKMB Creatine Kinase MB; Complete Time: 20:13 ED08/04 19:12 Order name: Creatine Phosphokinase; Complete Time: 20:13 EDGA 08/04 19:28 Order name: Urine Dipstick--Ancillary (enter results); Complete Time: 20:13 bd 08/04 19:30 Order name: Glucose, Ancillary Testing; Complete Time: 19:42 EDMS 08/04 20:35 Order name: Chest Pa And Lat (2 Views) XRAY; Complete Time: 23:36 la1 08/04 21:21 Order name: Manual Differential; Complete Time: 21:52 EDMS 08/05 00:13 Order name: Lactate Sepsis 2 HR Follow-up EDMS 08/04 19:11 Order name: Accucheck; Complete Time: 19:16 la1 08/04 19:11 Order name: Cardiac monitoring; Complete Time: 19:16 la1 08/04 19:11 Order name: EKG - Nurse/Tech; Complete Time: 20:02 la1 08/04 19:11 Order name: IV Saline Lock - Large Bore; Complete Time: 19:17 la1 08/04 19:11 Order name: Labs collected and sent; Complete Time: 19:17 la1 08/04 19:11 Order name: O2 Per Protocol; Complete Time: 19:17 la1 08/04 19:11 Order name: O2 Sat Monitoring; Complete Time: 19:17 la1 08/04 19:11 Order name: Urine Dipstick-Ancillary (obtain specimen); Complete Time: 19:43 la1 Administered Medications: 19:33 Drug: NS 0.9% (30 ml/kg) 30 ml/kg {Note: 2858 ml bolus.} Route: IV; Rate: bolus; Site: ll1 right antecubital; 08/05 00:01 Follow up: Response: No adverse reaction; IV Status: Completed infusion; IV Intake: ll1 3000ml 08/04 19:42 Drug: Motrin 600 mg Route: PO; ll1 20:22 Follow up: Response: No adverse reaction; Temperature is decreased; RASS: Alert and ll1 Calm (0) 19:42 Drug: Zofran (Ondansetron) 4 mg Route: IVP; Site: right antecubital; ll1 20:22 Follow up: Response: No adverse reaction ll1 21:03 Drug: Rocephin - (cefTRIAXone) 1 grams Route: IVPB; Infused Over: 30 mins; Site: right ll1 antecubital; 21:50 Follow up: Response: No adverse reaction; IV Status: Completed infusion; IV Intake: 50hgct7 21:14 CANCELLED (Other Intervention Used): Zithromax 500 mg IVPB once over 1 hrs; mix in 250 la1 mL NS 21:51 Drug: LevaQUIN 500 mg Volume: 100 ml; Route: IVPB; Infused Over: 60 mins; Site: right ll1 antecubital; 23:00 Follow up: Response: No adverse reaction; IV Status: Completed infusion; IV Intake: ll1 100ml 08/05 01:05 Drug: Zofran (Ondansetron) 4 mg Route: IVP; Site: right antecubital; ll1 01:26 Follow up: Response: No adverse reaction; Nausea is increased; RASS: Alert and Calm (0) ll1 01:05 Drug: Tylenol 650 mg Route: PO; ll1 :26 Follow up: Response: No adverse reaction ll1 :27 Drug: TORadol 30 mg Route: IVP; Site: right antecubital; ll1 02:04 Follow up: Response: No adverse reaction; Pain is decreased; RASS: Drowsy (-1) ll1 01:27 Drug: Phenergan 12.5 mg Route: IVP; Site: right antecubital; ll1 02:04 Follow up: Response: No adverse reaction; Nausea is decreased ll1 Disposition: 07:35 Co-signature as Attending Physician, Dillon Hargrove MD I agree with the assessment and leigh plan of care. Disposition: 08/05/19 22:00 Transfer ordered to [facility]. Diagnosis are Fever, unspecified, Immune comprimised. - Reason for transfer: Higher level of care. - Accepting physician is Dr. Giles Perez. . - Condition is Stable. - Problem is new. - Symptoms have improved. Signatures: Dispatcher [employer] Dillon Mcknight MD MD cha Attema, Lee, KIERRA-C ADJUNCT ENGLISH INSTRUCTOR-Cla1 Kimberley Alston RN RN ca1 Lewis, Lynsay, RN RN ll1 Corrections: (The following items were deleted from the chart) 08/04 21:14 20:43 Zithromax 500 mg IVPB once over 1 hrs; mix in 250 mL NS ordered. la1 la1 08/05 02:10 08/04 22:00 08/05/2019 22:00 Transfer ordered to [facility]. ll1 Diagnosis is Fever, unspecified; Immune comprimised. Reason for transfer: Higher level of care. Accepting physician is Dr. Oconnor, Dr. Skaggs. . Condition is Stable. Problem is new. Symptoms have improved. la1
--- NOTE | 2019-08-05 22:01 | ER ---
Nurse's Notes [facility] Name: Oscar Velasco Age: 24 yrs Sex: Male : 1995 Arrival Date: 08/05/2019 Time: 18:39 Bed 30 Private MD: Diagnosis: Fever, unspecified;Immune comprimised Presentation: 08/04 18:57 Chief complaint: Patient states: Cough and fever since today. Pt is a liver transplant ca1 pt on 1999. Denies congestion. Reports headaches, body aches, chills and nausea. Took Tylenol 1715. Coronavirus screen: The patient has NOT traveled to a country currently being monitored by the [facility] within the last 14 days. The patient has NOT had contact with any known and/or suspected case of coronavirus. Ebola Screen: Patient negative for fever greater than or equal to 101.5 degrees Fahrenheit, and additional compatible Ebola Virus Disease symptoms Patient denies exposure to infectious person. Patient denies travel to an Ebola-affected area in the 21 days before illness onset. No symptoms or risks identified at this time. Initial Sepsis Screen: Does the patient meet any 2 criteria? Temp <36.0*C (96.8*F)) or > 38.3*C (100.9*F). HR > 90 bpm. Yes Does the patient have a suspected source of infection? Yes: Productive cough/pneumonia. Risk Assessment: Do you want to hurt yourself or someone else? Patient reports no desire to harm self or others. Onset of symptoms was August 05, 2019. Care prior to arrival: Medication(s) given: Tylenol. 18:57 Acuity: GAURAV 2 ca1 18:57 Method Of Arrival: Ambulatory ca1 Triage Assessment: 08/05 01:28 Pain: Complains of pain in head Pain currently is 7 out of 10 on a pain scale. Quality ll1 of pain is described as aching, Pain began gradually, 30 min ago. Is intermittent. Historical: - Allergies: 08/04 19:02 No Known Allergies; ca1 - Home Meds: 19:02 pro graft [Active]; ca1 - PMHx: 19:02 liver failure; ca1 - PSHx: 19:02 liver transplant; ca1 - Immunization history:: Adult Immunizations up to date, Flu vaccine is not up to date. - Social history:: Smoking status: Patient denies any tobacco usage or history of. Screenin:43 Abuse screen: Denies threats or abuse. Nutritional screening: No deficits noted. ll1 Tuberculosis screening: No symptoms or risk factors identified. Fall Risk None identified. IV access (20 points). Total Gutierrez Fall Scale indicates No Risk (0-24 pts). Assessment: 19:46 General: Appears in no apparent distress. Behavior is calm, cooperative, Reports chills ll1 for 0-12 hours, fever for 0-12 hours, body aches with OSORIO. Neuro: No deficits noted. Cardiovascular: No deficits noted. Respiratory: Reports cough that is dry, Airway is patent Trachea midline Respiratory effort is even, unlabored, Respiratory pattern is regular, symmetrical, Breath sounds are clear bilaterally. GI: No deficits noted. EENT: Denies nasal congestion. 20:45 Reassessment: No changes from previously documented assessment. Patient and/or family ll1 updated on plan of care and expected duration. Pain level reassessed. Patient is alert, oriented x 3, equal unlabored respirations, skin warm/dry/pink. 21:50 Reassessment: No changes from previously documented assessment. Patient and/or family ll1 updated on plan of care and expected duration. Pain level reassessed. Patient is alert, oriented x 3, equal unlabored respirations, skin warm/dry/pink. Patient states feeling better. 22:50 Reassessment: No changes from previously documented assessment. Patient and/or family ll1 updated on plan of care and expected duration. Pain level reassessed. Patient is alert, oriented x 3, equal unlabored respirations, skin warm/dry/pink. 23:50 Reassessment: No changes from previously documented assessment. Patient and/or family ll1 updated on plan of care and expected duration. Pain level reassessed. Patient is alert, oriented x 3, equal unlabored respirations, skin warm/dry/pink. 08/05 00:18 Reassessment: No changes from previously documented assessment. Patient and/or family ll1 updated on plan of care and expected duration. Pain level reassessed. Patient is alert, oriented x 3, equal unlabored respirations, skin warm/dry/pink. Vital Signs: 08/04 18:57 BP 112 / 57; Pulse 135; Resp 19 S; Temp 102.3(O); Pulse Ox 96% on R/A; Weight 95.25 kg ca1 (R); Height 5 ft. 7 in. (170.18 cm) (R); Pain 6/10; 19:59 BP 108 / 67; Pulse 106; Resp 18; Temp 99.9; Pulse Ox 97% ; Pain 5/10; ll1 22:57 BP 105 / 67; Pulse 96; Resp 17; Temp 98.5; Pulse Ox 97% ; Pain 0/10; ll1 08/05 01:27 BP 110 / 71; Pulse 70; Resp 18; Temp 99.2; Pulse Ox 98% ; Pain 7/10; ll1 02:10 BP 108 / 71; Pulse 75; Resp 17; Pulse Ox 97% ; ll1 08/04 18:57 Body Mass Index 32.89 (95.25 kg, 170.18 cm) ca1 ED Course: 08/04 18:39 Patient arrived in ED. mr 18:54 DocyeceniaEleno, [facility] la1 18:54 Dillon Hargrove MD is Attending Physician. la1 19:01 Triage completed. ca1 19:02 Arm band placed on right wrist. ca1 19:06 Angela Ly, STACIA is Primary Nurse. ll1 19:16 Inserted saline lock: 20 gauge in right antecubital area, using aseptic technique. ss Blood collected. 19:41 Chest Single View XRAY In Process Unspecified. EDMS 19:43 Patient has correct armband on for positive identification. Placed in gown. Bed in low ll1 position. Call light in reach. Side rails up X 1. Adult w/ patient. 20:56 Chest Pa And Lat (2 Views) XRAY In Process Unspecified. EDMS 08/05 01:29 No provider procedures requiring assistance completed. Patient transferred, IV remains ll1 in place. 01:30 Report given to Kenzie Bates at [facility]. No questions about patient condition at [facility] this time. 02:02 Report given to [facility]. No questions about patient condition upon leaving ED. [facility] Administered Medications: 08/04 19:33 Drug: NS 0.9% (30 ml/kg) 30 ml/kg {Note: 2858 ml bolus.} Route: IV; Rate: bolus; Site: 1 right antecubital; 08/05 00:01 Follow up: Response: No adverse reaction; IV Status: Completed infusion; IV Intake: ll1 3000ml 08/04 19:42 Drug: Motrin 600 mg Route: PO; ll1 20:22 Follow up: Response: No adverse reaction; Temperature is decreased; RASS: Alert and ll1 Calm (0) 19:42 Drug: Zofran (Ondansetron) 4 mg Route: IVP; Site: right antecubital; ll1 20:22 Follow up: Response: No adverse reaction 1 21:03 Drug: Rocephin - (cefTRIAXone) 1 grams Route: IVPB; Infused Over: 30 mins; Site: right ll1 antecubital; 21:50 Follow up: Response: No adverse reaction; IV Status: Completed infusion; IV Intake: [id number] 21:14 CANCELLED (Other Intervention Used): Zithromax 500 mg IVPB once over 1 hrs; mix in 250 la1 mL NS 21:51 Drug: LevaQUIN 500 mg Volume: 100 ml; Route: IVPB; Infused Over: 60 mins; Site: right ll1 antecubital; 23:00 Follow up: Response: No adverse reaction; IV Status: Completed infusion; IV Intake: ll1 100ml 08/05 01:05 Drug: Zofran (Ondansetron) 4 mg Route: IVP; Site: right antecubital; ll1 01:26 Follow up: Response: No adverse reaction; Nausea is increased; RASS: Alert and Calm (0) ll1 01:05 Drug: Tylenol 650 mg Route: PO; ll1 01:26 Follow up: Response: No adverse reaction ll1 01:27 Drug: TORadol 30 mg Route: IVP; Site: right antecubital; ll1 02:04 Follow up: Response: No adverse reaction; Pain is decreased; RASS: Drowsy (-1) ll1 01:27 Drug: Phenergan 12.5 mg Route: IVP; Site: right antecubital; ll1 02:04 Follow up: Response: No adverse reaction; Nausea is decreased ll1 Intake: 08/04 21:50 IV: 60ml; Total: 60ml. ll1 23:00 IV: 100ml; Total: 160ml. 1 08/05 00:01 IV: 3000ml; Total: 3160ml. 1 Outcome: 08/04 22:00 ER care complete, transfer ordered by . la1 03/19 01:29 Transferred by ground EMS to [facility], [facility], Transfer form completed. ll1 Condition: stable Instructed on the need for transfer. 02:10 Patient left the ED. ll1 Signatures: Dispatcher [employer] Kira KirkSoraya, RN RN ss Eleno Aguilar, PULP SCREEN OPERATOR-C PULP SCREEN OPERATOR-Cla1 Kimberley Alston RN RN ca1 Angela Ly RN RN ll1 Corrections: (The following items were deleted from the chart) 00:15 08/04 19:46 EENT: Reports nasal congestion ll1 ll1 08/05 00:17 03/18 19:46 General: Appears in no apparent distress. Behavior is calm, cooperative, ll1ll1
[2019-08-06] MEDS ORDERED: ONDANSETRON 4 MG/2 ML VIAL ONE (00:57)
[2019-08-06] MEDS ORDERED: ACETAMINOPHEN 325 MG TABLET ONE (00:57)
[2019-08-06] MEDS ORDERED: PROMETHAZINE INJ 25 MG/ML AMP ONE (01:26)
[2019-08-06] MEDS ORDERED: KETOROLAC 30 MG/ML INJ ONE (01:26)
[2019-08-06 02:36] VITALS: TEMP 99.2
[2019-08-06 02:37] VITALS: BP 108/71; O2SAT 97
--- NOTE | 2019-08-06 16:55 | EKG ---
Test Date: 2019-08-05 Test Time: 19:52:53 Pharmacy Informaticist: SHEREEN MEASUREMENT RESULTS: Intervals: Rate: 108 LA: 152 QRSD: 88 QT: 316 QTc: 423 [place]: P: 44 LA: 152 QRS: 75 T: 44 INTERPRETIVE STATEMENTS: Sinus tachycardia Nonspecific ST abnormality Abnormal ECG No previous ECG available for comparison Electronically Signed On 08-06-19 16:54:59 CDT by Kwame Han
== END 2019-08-06 02:10 | disposition short-term general hospital (02) ==
LOC: ER 18:34
DX: R50.9 Fever, unspecified (principal); Z94.4 Liver transplant status
CPT/HCPCS: 96365; 96367; 93005; 87040 ×2; 85025; 80048; 36415; 82150; 82550; 85610; 82947; 80076; 83605 ×2; 85730; 84484; 82553; 83690; 84145; 87804 ×2; 71045; 71046; 96375; 99285; 96366; J2550; J0456; J0696; J7030; J2405 ×2; 81003; 81015